=== PATIENT | male | born 1985 | race Hispanic/Latino ===

== ENCOUNTER 2024-10-01 09:44 | Emergency (ER) | payer SELFPAY ==
[2024-10-01 09:49] VITALS: BP 139/78; PULSE 75; RESP 16; TEMP 36.6; O2SAT 98
--- NOTE | 2024-10-01 12:26 | ED_ITS ---
HPI - General Adult General Chief complaint: Abdominal Pain <Krystyna Mark PA-C - Last Filed: 10/01/24 12:30> Stated complaint: bloody stool <Krystyna Mark PA-C - Last Filed: 10/01/24 12:30> Time Seen by Provider: 10/01/24 12:26 <Krystyna Mark PA-C - Last Filed: 10/01/24 12:30> Focused HPI: Patient is a 39-year-old male who presents the ED with report of rectal bleeding. Patient reports yesterday he noticed bright red blood mixed in with his stool. Denies having any pain with the bowel movement. Denies any blood today, but has not had a BM. Denies abd pain, N/V. Patient is not on any anticoagulation. Has never had a colonoscopy. Denies history of diverticulitis. GENERAL: Well-appearing, well-nourished, and in no acute distress. HEAD: Normocephalic, atraumatic. CHEST: Clear to auscultation. ?No respiratory distress. HEART: Regular rate and rhythm.? ABD: No significant tenderness throughout abdomen. Normoactive BS NEURO: ?Alert and oriented x3. Patient screened in triage and initial orders placed.? ?Additional care and disposition to be based upon?diagnostic testing and treatment. <Krystyna Mark PA-C - Last Filed: 10/01/24 12:30> Source: patient <Krystyna Mark PA-C - Last Filed: 10/01/24 12:30> Mode of arrival: ambulatory <Krystyna Mark PA-C - Last Filed: 10/01/24 12:30> Limitations: no limitations <Krystyna Mark PA-C - Last Filed: 10/01/24 12:30> History of Present Illness HPI narrative: Agree with HPI. Reports he did have tp push harder than typical to have a bowel movement. <Rich Fraire MD - Last Filed: 10/01/24 16:54> Related Data Allergies/adverse reactions: Allergies Allergy/AdvReac Type Severity Reaction Status Date / Time FOOD PRESERVATIVES AdvReac Unknown Uncoded 10/01/24 09:52 <Krystyna Mark PA-C - Last Filed: 10/01/24 12:30> Review of Systems 2 Review of Systems: All systems reviewed & are unremarkable except as noted in HPI and below <Rich Fraire MD - Last Filed: 10/01/24 16:54> Constitutional: Constitutional: Reports no additional constitutional complaints <Rich Fraire MD - Last Filed: 10/01/24 16:54> Cardiovascular: Cardiovascular: Reports no additional cardiovascular complaints <Rich Fraire MD - Last Filed: 10/01/24 16:54> Respiratory: Respiratory: Reports no additional respiratory complaints < Rich Fraire MD - Last Filed: 10/01/24 16:54> Gastrointestinal: Gastrointestinal: Reports no additional gastrointestinal complaints <Rich Fraire MD - Last Filed: 10/01/24 16:54> Musculoskeletal: Musculoskeletal: Reports no additional musculoskeletal complaints <Rich Fraire MD - Last Filed: 10/01/24 16:54> PMFSH Past Medical History Medical History: Medical History (Updated 10/01/24 @ 16:53 by Rich Fraire MD) Healthy adult male <Krystyna Mark PA-C - Last Filed: 10/01/24 12:30> Surgical History Surgical History: Surgical History (Updated 10/01/24 @ 16:50 by Rich Fraire MD) No pertinent past surgical history <Krystyna Mark PA-C - Last Filed: 10/01/24 12:30> Exam 2 Narrative: GENERAL: Well-appearing, well-nourished, and in no acute distress. HEAD: Normocephalic, atraumatic. ENT: Mucous membranes moist. CHEST: Clear to auscultation. No respiratory distress. HEART: Regular rate and rhythm. Normal peripheral pulses. ABDOMEN: Soft, nontender, nondistended. RECTAL: External exam without food your or hemorrhoid. EXTREMITIES: Normal range of motion. No edema. NEURO: Alert and oriented x3. PSYCH: Normal mood and affect. <Rich Fraire MD - Last Filed: 10/01/24 16:54> Course Course Emergency Course: Recommend stool softeners and follow up with GI should bleeding persist. One episode yesterday and none today. No evidence of significant bleed. < Rich Fraire MD - Last Filed: 10/01/24 16:54> Vital Signs Vital signs: Vital Signs Temperature 97.8 F 10/01/24 09:49 Pulse Rate 75 10/01/24 09:49 Respiratory Rate 16 10/01/24 09:49 Blood Pressure 139/78 10/01/24 09:49 Pulse Oximetry 98 10/01/24 09:49 Oxygen Delivery Room Air 10/01/24 09:49 Temperature 98.5 F 10/01/24 14:13 Pulse Rate 70 10/01/24 16:02 Respiratory Rate 18 10/01/24 16:02 Blood Pressure 124/86 10/01/24 16:02 Pulse Oximetry 100 10/01/24 16:02 Oxygen Delivery Room Air 10/01/24 09:49 <Krystyna Mark PA-C - Last Filed: 10/01/24 12:30> Vital Signs Temperature 97.8 F 10/01/24 09:49 Pulse Rate 75 10/01/24 09:49 Respiratory Rate 16 10/01/24 09:49 Blood Pressure 139/78 10/01/24 09:49 Pulse Oximetry 98 10/01/24 09:49 Oxygen Delivery Room Air 10/01/24 09:49 Temperature 98.5 F 10/01/24 14:13 Pulse Rate 70 10/01/24 16:02 Respiratory Rate 18 10/01/24 16:02 Blood Pressure 124/86 10/01/24 16:02 Pulse Oximetry 100 10/01/24 16:02 Oxygen Delivery Room Air 10/01/24 09:49 <Rich Fraire MD - Last Filed: 10/01/24 16:54> Medical Decision Making MDM Narrative Medical decision making narrative: MSE by ABRIL in triage. <Krystyna Mark PA-C - Last Filed: 10/01/24 12:30> Vital Signs Vital Signs: Vital Signs Temperature 97.8 F 10/01/24 09:49 Pulse Rate 75 10/01/24 09:49 Respiratory Rate 16 10/01/24 09:49 Blood Pressure 139/78 10/01/24 09:49 Pulse Oximetry 98 10/01/24 09:49 Oxygen Delivery Room Air 10/01/24 09:49 Temperature 98.5 F 10/01/24 14:13 Pulse Rate 70 10/01/24 16:02 Respiratory Rate 18 10/01/24 16:02 Blood Pressure 124/86 10/01/24 16:02 Pulse Oximetry 100 10/01/24 16:02 Oxygen Delivery Room Air 10/01/24 09:49 <Krystyna Mark PA-C - Last Filed: 10/01/24 12:30> Vital Signs Temperature 97.8 F 10/01/24 09:49 Pulse Rate 75 10/01/24 09:49 Respiratory Rate 16 10/01/24 09:49 Blood Pressure 139/78 10/01/24 09:49 Pulse Oximetry 98 10/01/24 09:49 Oxygen Delivery Room Air 10/01/24 09:49 Temperature 98.5 F 10/01/24 14:13 Pulse Rate 70 10/01/24 16:02 Respiratory Rate 18 10/01/24 16:02 Blood Pressure 124/86 10/01/24 16:02 Pulse Oximetry 100 10/01/24 16:02 Oxygen Delivery Room Air 10/01/24 09:49 <Rich Fraire MD - Last Filed: 10/01/24 16:54> Lab Data Result diagrams: 10/01/24 12:52 10/01/24 12:52 <Krystyna Mark PA-C - Last Filed: 10/01/24 12:30> Labs: Lab Results 10/01/24 Range/Units 12:52 WBC 6.6 (4.5-10.0) K/mm3 RBC 5.03 (4.6-6.20) M/mm3 Hgb 16.2 (14.0-18.0) g/dL Hct 45.4 (42.0-52.0) % MCV 90.3 (80-100) fl MCH 32.2 (26-34) pg MCHC 35.7 (32-36) g/dl RDW 12.1 (11.5-14.5) % Plt Count 234 (150-375) k/mm3 MPV 10.1 (7.4-10.4) fl Immature Gran % (Auto) 0.3 (0-0.5) % Neut % (Auto) 67.9 (45.5-73.1) % Lymph % (Auto) 22.0 (18.3-44.2) % [place] % (Auto) 8.6 H (2.6-8.5) % Eos % (Auto) 0.3 (0-4.4) % Baso % (Auto) 0.9 (0.2-1.2) % Lymph # (Auto) 1.46 (0.9-3.2) K/mm3 [place] # (Auto) 0.6 (0.1-0.6) K/mm3 Eos # (Auto) 0.0 (0-0.3) K/mm3 Baso # (Auto) 0.1 (0.0-0.1) K/mm3 Abs Immat Gran (auto) 0.02 (0.00-0.031) K/mm3 Absolute Neuts (auto) 4.5 (1.3-6.7) K/mm3 Absolute Nucleated RBC 0.000 (0.0-0.012) K/mm3 Nucleated RBC % 0.0 (0.0-0.2) % PT 13.0 (11.1-14.7) Seconds INR 0.9 APTT 27.3 (22.3-36.8) Seconds Sodium 138 (137-145) mmol/L Potassium 4.1 (3.4-5.0) mmol/L Chloride 105 (98-107) mmol/L Carbon Dioxide 28 (22-30) mmol/L Anion Gap 5 (4-12) mmol/L BUN 12 (9-20) mg/dL Creatinine 0.80 (0.7-1.3) mg/dL Estim Creat Clear Calc 116 ml/min Estimated GFR > 60 (59 - ) Glucose 88 (65-110) mg/dL Calcium 9.4 (8.4-10.2) mg/dL Total Bilirubin 1.5 H (0.2-1.3) mg/dL AST 29 (17-59) U/L ALT 18 (6-50) U/L Alkaline Phosphatase 123 (38-126) U/L Total Protein 8.0 (6.3-8.2) g/dL Albumin 4.7 (3.5-5.1) g/dL Lipase 37 (23-300) U/L Blood Type O Positive Antibody Screen Negative <Krystyna Mark PA-C - Last Filed: 10/01/24 12:30> Lab Results 10/01/24 Range/Units 12:52 WBC 6.6 (4.5-10.0) K/mm3 RBC 5.03 (4.6-6.20) M/mm3 Hgb 16.2 (14.0-18.0) g/dL Hct 45.4 (42.0-52.0) % MCV 90.3 (80-100) fl MCH 32.2 (26-34) pg MCHC 35.7 (32-36) g/dl RDW 12.1 (11.5-14.5) % Plt Count 234 (150-375) k/mm3 MPV 10.1 (7.4-10.4) fl Immature Gran % (Auto) 0.3 (0-0.5) % Neut % (Auto) 67.9 (45.5-73.1) % Lymph % (Auto) 22.0 (18.3-44.2) % [place] % (Auto) 8.6 H (2.6-8.5) % Eos % (Auto) 0.3 (0-4.4) % Baso % (Auto) 0.9 (0.2-1.2) % Lymph # (Auto) 1.46 (0.9-3.2) K/mm3 [place] # (Auto) 0.6 (0.1-0.6) K/mm3 Eos # (Auto) 0.0 (0-0.3) K/mm3 Baso # (Auto) 0.1 (0.0-0.1) K/mm3 Abs Immat Gran (auto) 0.02 (0.00-0.031) K/mm3 Absolute Neuts (auto) 4.5 (1.3-6.7) K/mm3 Absolute Nucleated RBC 0.000 (0.0-0.012) K/mm3 Nucleated RBC % 0.0 (0.0-0.2) % PT 13.0 (11.1-14.7) Seconds INR 0.9 APTT 27.3 (22.3-36.8) Seconds Sodium 138 (137-145) mmol/L Potassium 4.1 (3.4-5.0) mmol/L Chloride 105 (98-107) mmol/L Carbon Dioxide 28 (22-30) mmol/L Anion Gap 5 (4-12) mmol/L BUN 12 (9-20) mg/dL Creatinine 0.80 (0.7-1.3) mg/dL Estim Creat Clear Calc 116 ml/min Estimated GFR > 60 (59 - ) Glucose 88 (65-110) mg/dL Calcium 9.4 (8.4-10.2) mg/dL Total Bilirubin 1.5 H (0.2-1.3) mg/dL AST 29 (17-59) U/L ALT 18 (6-50) U/L Alkaline Phosphatase 123 (38-126) U/L Total Protein 8.0 (6.3-8.2) g/dL Albumin 4.7 (3.5-5.1) g/dL Lipase 37 (23-300) U/L Blood Type O Positive Antibody Screen Negative <Rich Fraire MD - Last Filed: 10/01/24 16:54> Discharge Plan Discharge Clinical Impression: Blood in stool <Krystyna Mark PA-C - Last Filed: 10/01/24 12:30> Patient Disposition: Home, Self-Care <Krystyna Mark PA-C - Last Filed: 10/01/24 12:30> Condition: Stable <Krystyna Mark PA-C - Last Filed: 10/01/24 12:30> Instructions: Rectal Bleeding (ED) <Krystyna Mark PA-C - Last Filed: 10/01/24 12:30> Additional Instructions: Return ER if you have worsening bleeding from your rectum, he lose consciousness, or you have additional concerns. Use a stool softener. If you have recurrent bleeding you may need to be seen by GI doctor <Krystyna Mark PA-C - Last Filed: 10/01/24 12:30> Patient Language: Portuguese <Krystyna Mark PA-C - Last Filed: 10/01/24 12:30> Prescriptions: New docusate sodium [Colace] 100 mg capsule 100 mg PO BID Qty: 14 0RF <Krystyna Mark PA-C - Last Filed: 10/01/24 12:30> Follow-up/Referrals: PHYSICIAN,INSURANCE ADVISOR [Non-Staff] - Johnathan Turcios MD [Physician] - 1 Week <Krystyna Mark PA-C - Last Filed: 10/01/24 12:30>
[2024-10-01 12:57] LABS: Basophils Absolute Auto 0.1 K/mm3 (0.0-0.1); Basophils Percent Auto 0.9 % (0.2-1.2); Eosinophils Percent Auto 0.3 % (0-4.4); Hematocrit 45.4 % (42.0-52.0); Hemoglobin 16.2 g/dL (14.0-18.0); Immature Granulocyte Absolute 0.02 K/mm3 (0.00-0.031); Immature Granulocyte Percent A 0.3 % (0-0.5); Lymphocytes Absolute Auto 1.46 K/mm3 (0.9-3.2); Mean Corpuscular HGB Conc 35.7 g/dl (32-36); Mean Corpuscular Hemoglobin 32.2 pg (26-34); Mean Corpuscular Volume 90.3 fl (80-100); Mean Platelet Volume 10.1 fl (7.4-10.4); Monocytes Absolute Auto 0.6 K/mm3 (0.1-0.6); Monocytes Percent Auto 8.6 % (2.6-8.5); Neutrophils Absolute Auto 4.5 K/mm3 (1.3-6.7); Neutrophils Percent Auto 67.9 % (45.5-73.1); Platelet Count Result 234 k/mm3 (150-375); Red Blood Count 5.03 M/mm3 (4.6-6.20); Red Cell Distribution Width 12.1 % (11.5-14.5); White Blood Count 6.6 K/mm3 (4.5-10.0)
[2024-10-01 13:11] LABS: Alanine Aminotransferase 18 U/L (6-50); Albumin Level 4.7 g/dL (3.5-5.1); Alkaline Phosphatase 123 U/L (38-126); Anion Gap 5 mmol/L (4-12); Aspartate Amino Transferase 29 U/L (17-59); Bilirubin,Total 1.5 mg/dL (0.2-1.3); Blood Urea Nitrogen 12 mg/dL (9-20); Calcium 9.4 mg/dL (8.4-10.2); Carbon Dioxide 28 mmol/L (22-30); Chloride 105 mmol/L (98-107); Estimated CRCL calculation 116 ml/min; Estimated Glomerular Filt Rate > 60; Glucose 88 mg/dL (65-110); Lipase 37 U/L (23-300); Potassium 4.1 mmol/L (3.4-5.0); Sodium 138 mmol/L (137-145)
[2024-10-01 13:16] LABS: INR 0.9
[2024-10-01 13:17] LABS: Partial Thromboplastin Time 27.3 Seconds (22.3-36.8)
[2024-10-01 14:13] VITALS: BP 133/83; PULSE 65; RESP 18; TEMP 36.9; O2SAT 100
[2024-10-01 16:02] VITALS: BP 124/86; PULSE 70; RESP 18; O2SAT 100
[2024-10-01 17:10] VITALS: BP 138/95; PULSE 71; RESP 18; O2SAT 100
== END 2024-10-01 17:13 | disposition home or self-care (01) ==
PROVIDERS: Physician Assistant; Emergency Provider Emergency Medicine
DX: K92.1 Melena (principal)
CPT/HCPCS: 36415; 80053; 83690; 85025; 85610; 85730; 86850; 86900; 86901; 99283